=== PATIENT | male | born 1965 | race Caucasian/White ===

== ENCOUNTER 2021-01-17 16:40 | Emergency (ER) | payer BC, SELFPAY ==
--- NOTE | ~2021-01-17 | CT_ITS ---
EXAMINATION: CT LE LT w con DATE: 01/17/2021 19:55 INDICATION: Left thigh/groin pain TECHNIQUE: Computed tomography (CT) of the left lower extremity was performed with 100 cc Omnipaque 3 50 intravenous contrast. The dose-length product was 992.64 mGy-cm. Automated exposure control and it erative reconstruction technique were employed. COMPARISON: None FINDINGS: There is diffuse enlargement of the left quadriceps muscles of the anterior thigh with marlene cent edema/fluid. No acute fracture or traumatic malalignment. No significant knee effusion. There is diffuse muscle enlargement which is homogeneous without discrete mass. No localized fluid collection to suggest abscess. Neoplasm is unlikely. IMPRESSION: 1. Diffuse enlargement of multiple quadricep muscles of the anterior thigh without associated mass or abnormal localized fluid collection. There is surrounding edema within the fat. Considerations inclu de sequela of prior trauma such as contusion or hematoma. Other considerations include infection in t he appropriate clinical setting. Cannot exclude muscle tear or tendon rupture. Reviewed, dictated and finalized at location [facility]. [employer] IMPRESSION: 1. Diffuse enlargement of multiple quadricep muscles of the anterior thigh with out associated mass or abnormal localized fluid collection. There is surroundin g edema within the fat. Considerations include sequela of prior trauma such as contusion or hematoma. Other considerations include infection in the appropriat e clinical setting. Cannot exclude muscle tear or tendon rupture.
[2021-01-17 16:55] VITALS: BP 115/55; PULSE 56; RESP 22; TEMP 35.7; O2SAT 100
[2021-01-17 19:00] VITALS: BP 130/65; PULSE 70; RESP 18; O2SAT 100
[2021-01-17] MEDS: SODIUM CHLORIDE 0.9% IV 1,000 ML 999 ML IV CONT (19:25)
[2021-01-17] MEDS: HYDROcodone/acetaminophen (*CRX) 7.5-325 MG TABLET 1 TAB PO (19:25)
--- NOTE | 2021-01-17 19:25 | ED.GENADULT ---
HPI - General Adult General Chief complaint: Extremity Injury, Lower Stated complaint: left leg pain Time Seen by Provider: 01/17/21 19:00 Source: patient Mode of arrival: ambulatory Limitations: no limitations History of Present Illness HPI narrative: Patient is a 55-year-old male who presents to emergency department for evaluation of pain and swelling to the left thigh that began acutely patient was preparing to do a bench press when he had the sudden pain and swelling of the left thigh denies similar occurrence in the past or any injury or trauma to the thigh patient notes swelling and discomfort worse with any activity or movement has been present since around 1:00 this afternoon. Patient takes hydrocodone as needed for pain denies other past medical history or medications. Patient notes he has chronic paresthesias in this leg from a prior injury. Patient denies other complaints and on arrival in the room in no distress Related Data Allergies Allergy/AdvReac Type Severity Reaction Status Date / Time No Known Allergies Allergy Unverified 09/30/17 14:18 Review of Systems Review of Systems: All systems reviewed & are unremarkable except as noted in HPI and below PMFSH Past Medical History Medical History (Updated 01/17/21 @ 21:51 by Milton Shin PA-C) Chronic low back pain Social History Social History Smoking status: Never smoker Alcohol intake: current Exam Narrative: Exam Narrative: GENERAL: Well-appearing, well-nourished, and in no acute distress. HEAD: Normocephalic, atraumatic. EYES: PERRLA and EOMI. ENT: Nares clear, no rhinorrhea or epistaxis. Mucous membranes moist. CHEST: Clear to auscultation. No respiratory distress. No wheezes rales or rhonchi HEART: Regular rate and rhythm. No murmur heard. Normal peripheral pulses. ABDOMEN: Soft, nontender, nondistended EXTREMITIES: Normal range of motion. No edema. Patient with firm left thigh remainder of extremity nontender firmness and swelling are circumferential. Patient experiences tenderness to palpation. The tissues are firm however can be compressed and are still soft but elicits pain with any palpation SKIN: Warm, dry, no rash. NEURO: No focal deficits. Alert and oriented x3. Neurovascularly intact. Cranial nerves II through XII grossly intact. Capillary refill less than 2 seconds PSYCH: Normal mood and affect. Course Course Emergency Course: Patient was evaluated in the emergency department for left thigh swelling and pain patient's injury occurred at 1:00 he has had no worsening 8 hours later patient's pain is tolerated patient was given recommendation for admission but feels comfortable to go home and would like to follow-up on an outpatient basis with the orthopedist patient is aware of discussion with orthopedist and is opted to follow-up on an outpatient basis and agrees to return if symptoms worsen patient is neurovascularly intact with good distal pulses patient's tissues are soft. Patient provided with reasons to return. Patient adamantly denies any injection other injury or trauma or explanation for his swelling which occurred acutely while bracing down on his legs to lift a large amount of weight likely suggesting a traumatic cause. Consultations Consultation #1: Discussed case in detail with Dr. Barrios the orthopedist who agrees that it is likely traumatic in nature and that the patient can follow-up on an outpatient basis if he feels comfortable with this can also be offered inpatient evaluation. Date: 01/17/21 Vital Signs Vital signs: Vital Signs Temperature 96.3 F L 01/17/21 16:55 Pulse Rate 56 L 01/17/21 16:55 Respiratory Rate 22 H 01/17/21 16:55 Blood Pressure 115/55 L 01/17/21 16:55 Pulse Oximetry 100 01/17/21 16:55 Temperature 98.3 F 01/17/21 21:19 Pulse Rate 80 01/17/21 21:19 Respiratory Rate 18 01/17/21 21:19 Blood Pressure 148/95 H 01/17/21 21:19 Pulse Oximetry 99 01/17/21 21:19
[2021-01-17 19:26] LABS: Basophils Absolute Auto 0.1 K/mm3 (0.0-0.1); Basophils Percent Auto 0.3 % (0.2-1.2); Hematocrit 43.1 % (42.0-52.0); Hemoglobin 14.5 g/dL (14.0-18.0); Immature Granulocyte Percent A 0.5 % (0-0.5); Lymphocytes Absolute Auto 1.17 K/mm3 (0.9-3.2); Lymphocytes Percent Auto 5.4 % (18.3-44.2); Mean Corpuscular HGB Conc 33.6 g/dl (32-36); Mean Corpuscular Hemoglobin 31.1 pg (26-34); Mean Corpuscular Volume 92.5 fl (80-100); Monocytes Absolute Auto 1.2 K/mm3 (0.1-0.6); Monocytes Percent Auto 5.6 % (2.6-8.5); Neutrophils Percent Auto 88.2 % (45.5-73.1); Platelet Count Result 276 k/mm3 (150-375); Red Blood Count 4.66 M/mm3 (4.6-6.20); White Blood Count 21.5 K/mm3 (4.5-10.0)
[2021-01-17 19:38] LABS: Anion Gap 7 mmol/L (8-16); Blood Urea Nitrogen 18 mg/dL (9-20); Calcium 9.1 mg/dL (8.4-10.2); Carbon Dioxide 31 mmol/L (22-30); Chloride 97 mmol/L (98-107); Creatine Kinase 441 U/L (55-170); Estimated CRCL calculation 77 ml/min; Estimated Glomerular Filt Rate > 60; Glucose 132 mg/dL (75-110); Potassium 3.1 mmol/L (3.4-5.0); Sodium 135 mmol/L (137-145)
[2021-01-17 19:39] LABS: Prothrombin Time 13.3 Seconds (11.1-14.7)
[2021-01-17 19:40] LABS: Partial Thromboplastin Time 20.7 SECONDS (22.3-36.8)
[2021-01-17 21:19] VITALS: BP 148/95; PULSE 80; RESP 18; TEMP 36.8; O2SAT 99
== END 2021-01-17 22:00 | disposition home or self-care (01) ==
PROVIDERS: Emergency Medicine Emergency Medical Services; Emergency Provider Emergency Medicine
DX: S76.192A Other specified injury of left quadriceps muscle, fascia and tendon, initial encounter (principal); X58.XXXA Exposure to other specified factors, initial encounter; Y93.B3 Activity, free weights
CPT/HCPCS: 36415; 73701; 80048; 82550; 85025; 85610; 85730; 96360; 99284; A9270; J0131; J7030; Q9967

== ENCOUNTER 2022-07-10 12:25 | Outpatient (CLI) | payer BC, SELFPAY ==
[2022-07-10 13:46] LABS: Basophils Absolute Auto 0.1 K/mm3 (0.0-0.1); Basophils Percent Auto 0.7 % (0.2-1.2); Eosinophils Absolute Auto 0.1 K/mm3 (0-0.3); Eosinophils Percent Auto 1.3 % (0-4.4); Hematocrit 51.2 % (42.0-52.0); Hemoglobin 17.1 g/dL (14.0-18.0); Immature Granulocyte Absolute 0.03 K/mm3 (0.00-0.031); Immature Granulocyte Percent A 0.3 % (0-0.5); Lymphocytes Absolute Auto 1.52 K/mm3 (0.9-3.2); Lymphocytes Percent Auto 16.8 % (18.3-44.2); Mean Corpuscular HGB Conc 33.4 g/dl (32-36); Mean Corpuscular Hemoglobin 30.8 pg (26-34); Mean Corpuscular Volume 92.1 fl (80-100); Mean Platelet Volume 10.4 fl (7.4-10.4); Monocytes Absolute Auto 0.9 K/mm3 (0.1-0.6); Monocytes Percent Auto 10.4 % (2.6-8.5); Neutrophils Absolute Auto 6.4 K/mm3 (1.3-6.7); Neutrophils Percent Auto 70.5 % (45.5-73.1); Platelet Count Result 255 k/mm3 (150-375); Red Blood Count 5.56 M/mm3 (4.6-6.20); Red Cell Distribution Width 13.8 % (11.5-14.5)
[2022-07-10 13:59] LABS: Alanine Aminotransferase 72 U/L (6-50); Albumin Level 4.9 g/dL (3.5-5.1); Alkaline Phosphatase 54 U/L (38-126); Anion Gap 6 mmol/L (8-16); Aspartate Amino Transferase 47 U/L (17-59); Bilirubin,Total 0.8 mg/dL (0.2-1.3); Blood Urea Nitrogen 20 mg/dL (9-20); Calcium 9.4 mg/dL (8.4-10.2); Carbon Dioxide 31 mmol/L (22-30); Chloride 98 mmol/L (98-107); Estimated Glomerular Filt Rate > 60; Glucose 90 mg/dL (65-110); Potassium 3.3 mmol/L (3.4-5.0); Sodium 135 mmol/L (137-145)
== END 2022-07-10 12:26 | disposition home or self-care (01) ==
LOC: ANHLAB 12:28
PROVIDERS: Visit Provider Nurse Practitioner Adult Health
DX: I16.0 Hypertensive urgency (principal); R07.9 Chest pain, unspecified
CPT/HCPCS: 36415; 80053; 84443; 85025